=== PATIENT | female | born 1950 | race Caucasian/White ===

== ENCOUNTER → 2016-12-24 | Outpatient (CLI) | payer MEDICARE, OTHER ==
[2015-03-21 15:30] VITALS: BP 131/73
[~2016-12-24] MED LIST: ACCUPRIL10 M1 PO; ALLERGY RELIEF10 M1 PO; CALCIUM1 CAP PO; CO Q10 PO; CO-Q-10 100 MG-1 SGL PO; COLACE 100100 MG/CAP PO; COUMADIN2.5 MG PO; COUMADIN5 M1 PO; COUMADIN5 MG PO; FLONASE0.05 MG/AC IH; GLUCOSAMINE & C1 CA1 PO; HCTZ 25MG25 MG PO; KLOR-CON 1010 MEQ PO; LASIX40 MG PO; METOPROLOL PO; MULTIVITAMIN WI1 CAP PO; NORCO 325 MG-51 TAB PO; SUPER EPA1 SGL PO; TOPROL XL100 MG PO; VITAMIN C PURE500 M1 PO
== END ==
LOC: LAB 15:44
DX: Z51.81 Encounter for therapeutic drug level monitoring (principal); Z79.01 Long term (current) use of anticoagulants; Z86.718 Personal history of other venous thrombosis and embolism

== ENCOUNTER → 2017-01-21 | Outpatient (CLI) | payer MEDICARE, OTHER ==
[2015-03-21 15:30] VITALS: BP 131/73
== END ==
LOC: RAD 09:54
DX: M79.675 Pain in left toe(s) (principal); I48.0 Paroxysmal atrial fibrillation; M77.32 Calcaneal spur, left foot

== ENCOUNTER → 2017-07-16 | Outpatient (CLI) | payer MEDICARE, OTHER ==
[2015-03-21 15:30] VITALS: BP 131/73
== END ==
LOC: LAB 08:43
DX: Z00.00 Encounter for general adult medical examination without abnormal findings (principal); I10 Essential (primary) hypertension; E78.2 Mixed hyperlipidemia; I48.0 Paroxysmal atrial fibrillation; Z86.718 Personal history of other venous thrombosis and embolism

== ENCOUNTER → 2017-07-31 | Outpatient (CLI) | payer MEDICARE ==
[2015-03-21 15:30] VITALS: BP 131/73
== END ==
LOC: MAMMO 07-30 14:25
DX: Z12.31 Encounter for screening mammogram for malignant neoplasm of breast (principal)
CPT/HCPCS: G0202

== ENCOUNTER → 2018-05-27 | Outpatient (CLI) | payer MEDICARE ==
[2015-03-21 15:30] VITALS: BP 131/73
== END ==
LOC: LAB 14:36
DX: L02.416 Cutaneous abscess of left lower limb (principal); L03.116 Cellulitis of left lower limb

== ENCOUNTER → 2018-05-30 | Outpatient (CLI) | payer MEDICARE ==
[2015-03-21 15:30] VITALS: BP 131/73
== END ==
LOC: RAD 11:40
DX: L02.416 Cutaneous abscess of left lower limb (principal); L03.116 Cellulitis of left lower limb

== ENCOUNTER → 2019-01-19 | Outpatient (CLI) | payer MEDICARE ==
[2015-03-21 15:30] VITALS: BP 131/73
[2019-01-19 17:15] LABS: PROTHROMBIN TIME 18.3 SECONDS (9.0-12.0)
== END ==
LOC: LAB 15:31
PROVIDERS: Physician Assistant
DX: I48.91 Unspecified atrial fibrillation (principal)

== ENCOUNTER → 2019-01-27 | Outpatient (CLI) | payer MEDICARE ==
[2015-03-21 15:30] VITALS: BP 131/73
[2019-01-27 16:38] LABS: EOS # 0.1 (0.04-0.40); HEMATOCRIT 48.4 % (37.0-47.0); MEAN CELL VOLUME 87 fl (78-100); MEAN CORPUSCULAR HEMOGLOBIN 27 pg (27-31); MEAN CORPUSCULAR HGB CONC 31 g/dL (33-37); MEAN PLATELET VOLUME 10.4 fl (7.4-10.4); MONO # 0.8 (0.20-0.80); NEU # 5.1 (1.40-6.50); PLATELET COUNT 153 K/mm3 (130-400); RED BLOOD COUNT 5.54 M/mm3 (4.10-5.30); WHITE BLOOD COUNT 7.2 K/mm3 (4.8-10.8)
[2019-01-27 16:55] LABS: ALBUMIN 4.1 g/dL (3.5-5.0); CALCIUM 8.9 mg/dL (8.4-10.2); POTASSIUM 3.7 mmol/L (3.6-5.0); TOTAL BILIRUBIN 0.8 mg/dL (0.2-1.3); TOTAL PROTEIN 7.2 g/dL (6.3-8.2)
== END ==
LOC: LAB 16:12
PROVIDERS: Physician Assistant
DX: I50.9 Heart failure, unspecified (principal); I51.7 Cardiomegaly; M89.8X9 Other specified disorders of bone, unspecified site; R06.2 Wheezing

== ENCOUNTER → 2019-02-03 | Outpatient (CLI) | payer MEDICARE ==
[2015-03-21 15:30] VITALS: BP 131/73
[2019-02-03 14:36] LABS: PROTHROMBIN TIME 44.2 SECONDS (9.0-12.0)
== END ==
LOC: LAB 13:54
PROVIDERS: Physician Assistant
DX: I48.91 Unspecified atrial fibrillation (principal)

== ENCOUNTER → 2019-02-11 | Outpatient (CLI) | payer MEDICARE ==
[2015-03-21 15:30] VITALS: BP 131/73
== END ==
LOC: LAB 13:45
PROVIDERS: Physician Assistant
DX: I48.91 Unspecified atrial fibrillation (principal)

== ENCOUNTER → 2019-04-07 | Outpatient (CLI) | payer MEDICARE ==
[2015-03-21 15:30] VITALS: BP 131/73
[2019-04-07 17:07] LABS: PROTHROMBIN TIME 11.6 SECONDS (9.0-12.0)
== END ==
LOC: LAB 16:16
PROVIDERS: Physician Assistant
DX: I48.91 Unspecified atrial fibrillation (principal)

== ENCOUNTER → 2019-09-07 | Outpatient (CLI) | payer MEDICARE ==
[2015-03-21 15:30] VITALS: BP 131/73
[2019-09-07 13:12] LABS: PROTHROMBIN TIME 26.2 SECONDS (9.0-12.0)
== END ==
LOC: LAB 12:36
PROVIDERS: Physician Assistant
DX: I48.91 Unspecified atrial fibrillation (principal)

== ENCOUNTER → 2020-03-17 | Outpatient (CLI) | payer MEDICARE ==
[2015-03-21 15:30] VITALS: BP 131/73
[2020-03-17 10:34] LABS: PROTHROMBIN TIME 20.4 SECONDS (9.0-12.0)
== END ==
LOC: RAD 09:15
PROVIDERS: Nurse Practitioner
DX: M19.071 Primary osteoarthritis, right ankle and foot (principal); I63.9 Cerebral infarction, unspecified; L03.90 Cellulitis, unspecified; W19.XXXA Unspecified fall, initial encounter; Z79.01 Long term (current) use of anticoagulants

== ENCOUNTER → 2020-04-01 | Outpatient (CLI) | payer MEDICARE ==
[2015-03-21 15:30] VITALS: BP 131/73
[2020-04-01 14:09] LABS: EOS # 0.4 (0.04-0.40); EOS % 5.7 % (1.0-5.0); HEMATOCRIT 43.9 % (37.0-47.0); HEMOGLOBIN 13.6 g/dL (12.5-16.0); LYMPH# 1.2 (1.50-4.00); MEAN CELL VOLUME 89 fl (78-100); MEAN CORPUSCULAR HEMOGLOBIN 28 pg (27-31); MEAN CORPUSCULAR HGB CONC 31 g/dL (33-37); MONO # 0.8 (0.20-0.80); NEU # 4.7 (1.40-6.50); PLATELET COUNT 185 K/mm3 (130-400); RED BLOOD COUNT 4.94 M/mm3 (4.10-5.30); RED CELL DISTRIBUTION WIDTH 14.2 % (11.5-14.5); WHITE BLOOD COUNT 7.2 K/mm3 (4.8-10.8)
[2020-04-01 14:16] LABS: ALBUMIN 3.6 g/dL (3.4-4.8); POTASSIUM 4.1 mmol/L (3.5-5.1)
[2020-04-01 14:17] LABS: CALCIUM 8.6 mg/dL (8.3-10.5)
[2020-04-01 14:18] LABS: PROTHROMBIN TIME 30.7 SECONDS (9.0-12.0)
[2020-04-01 14:19] LABS: TOTAL PROTEIN 6.4 g/dL (6.2-8.1)
[2020-04-01 14:21] LABS: TOTAL BILIRUBIN 0.2 mg/dL (0.2-1.2)
== END ==
LOC: LAB 13:41
PROVIDERS: Physician Assistant
DX: Z12.31 Encounter for screening mammogram for malignant neoplasm of breast (principal); I10 Essential (primary) hypertension; E78.5 Hyperlipidemia, unspecified; M19.90 Unspecified osteoarthritis, unspecified site; I48.0 Paroxysmal atrial fibrillation; F32.9 Major depressive disorder, single episode, unspecified; L03.90 Cellulitis, unspecified; Z79.01 Long term (current) use of anticoagulants

== ENCOUNTER → 2020-04-19 | Outpatient (CLI) | payer MEDICARE ==
[2015-03-21 15:30] VITALS: BP 131/73
== END ==
LOC: RAD 10:12
DX: Z00.00 Encounter for general adult medical examination without abnormal findings (principal); Z12.31 Encounter for screening mammogram for malignant neoplasm of breast; M17.12 Unilateral primary osteoarthritis, left knee; R93.7 Abnormal findings on diagnostic imaging of other parts of musculoskeletal system

== ENCOUNTER → 2020-05-03 | Outpatient (CLI) | payer MEDICARE ==
[2015-03-21 15:30] VITALS: BP 131/73
== END ==
LOC: LAB 10:04 → RAD 10:04 → MAMMO 10:45
DX: Z00.00 Encounter for general adult medical examination without abnormal findings (principal); Z12.31 Encounter for screening mammogram for malignant neoplasm of breast; Z13.820 Encounter for screening for osteoporosis; M17.12 Unilateral primary osteoarthritis, left knee; M85.80 Other specified disorders of bone density and structure, unspecified site; R79.89 Other specified abnormal findings of blood chemistry; R93.7 Abnormal findings on diagnostic imaging of other parts of musculoskeletal system

== ENCOUNTER → 2020-05-03 | Outpatient (CLI) | payer MEDICARE ==
[2015-03-21 15:30] VITALS: BP 131/73
== END ==
LOC: MAMMO 10:00
DX: Z12.31 Encounter for screening mammogram for malignant neoplasm of breast (principal); M25.562 Pain in left knee; R93.7 Abnormal findings on diagnostic imaging of other parts of musculoskeletal system

== ENCOUNTER → 2020-07-20 | Outpatient (CLI) | payer MEDICARE ==
[2015-03-21 15:30] VITALS: BP 131/73
[2020-07-20 14:21] LABS: PROTHROMBIN TIME 20.7 SECONDS (9.0-12.0)
== END ==
LOC: LAB 13:31
PROVIDERS: Physician Assistant
DX: I63.9 Cerebral infarction, unspecified (principal); Z79.01 Long term (current) use of anticoagulants

== ENCOUNTER → 2020-10-18 | Outpatient (CLI) | payer MEDICARE ==
[2015-03-21 15:30] VITALS: BP 131/73
[2020-10-18 14:50] LABS: URINE WBC 0 /hpf (0-3)
[2020-10-18 14:59] LABS: EOS # 0.2 (0.04-0.40); EOS % 2.8 % (1.0-5.0); HEMATOCRIT 43.1 % (37.0-47.0); HEMOGLOBIN 13.5 g/dL (12.5-16.0); LYMPH# 1.5 (1.50-4.00); MEAN CELL VOLUME 89 fl (78-100); MEAN CORPUSCULAR HEMOGLOBIN 28 pg (27-31); MEAN CORPUSCULAR HGB CONC 31 g/dL (33-37); MEAN PLATELET VOLUME 10.5 fl (7.4-10.4); MONO # 0.8 (0.20-0.80); NEU # 4.3 (1.40-6.50); PLATELET COUNT 204 K/mm3 (130-400); RED BLOOD COUNT 4.84 M/mm3 (4.10-5.30); RED CELL DISTRIBUTION WIDTH 13.8 % (11.5-14.5); WHITE BLOOD COUNT 6.8 K/mm3 (4.8-10.8)
[2020-10-18 15:12] LABS: POTASSIUM 3.8 mmol/L (3.5-5.1)
[2020-10-18 15:13] LABS: CALCIUM 9.3 mg/dL (8.3-10.5); PROTHROMBIN TIME 18.8 SECONDS (9.0-12.0); URINE APPEARANCE CLEAR; URINE BILIRUBIN NEGATIVE (NEGATIVE); URINE BLOOD NEGATIVE (NEGATIVE); URINE COLOR YELLOW; URINE GLUCOSE NEGATIVE (NEGATIVE); URINE KETONE NEGATIVE (NEGATIVE); URINE LEUKOCYTE ESTERASE NEGATIVE (NEGATIVE); URINE NITRATE NEGATIVE (NEGATIVE); URINE PROTEIN(semi-quant) NEGATIVE (NEGATIVE); URINE UROBILINOGEN NORMAL (NORMAL)
[2020-10-18 15:14] LABS: TOTAL PROTEIN 6.8 g/dL (6.2-8.1)
[2020-10-18 15:16] LABS: TOTAL BILIRUBIN 0.4 mg/dL (0.2-1.2)
== END ==
LOC: RAD 14:33
PROVIDERS: Physician Assistant
DX: Z01.818 Encounter for other preprocedural examination (principal); Z13.29 Encounter for screening for other suspected endocrine disorder; I51.7 Cardiomegaly

== ENCOUNTER → 2020-10-27 | Outpatient (CLI) | payer MEDICARE ==
[2015-03-21 15:30] VITALS: BP 131/73
== END ==
LOC: PT 08:47 → EDSTATUS 14:00
DX: M17.12 Unilateral primary osteoarthritis, left knee (principal); Z96.652 Presence of left artificial knee joint

== ENCOUNTER → 2020-11-04 | Outpatient (CLI) | payer MEDICARE ==
[2015-03-21 15:30] VITALS: BP 131/73
[2020-11-04 14:55] LABS: PROTHROMBIN TIME 15.8 SECONDS (9.0-12.0)
== END ==
LOC: LAB 13:46
PROVIDERS: Physician Assistant
DX: Z01.818 Encounter for other preprocedural examination (principal); Z79.01 Long term (current) use of anticoagulants

== ENCOUNTER → 2020-11-07 | Outpatient (CLI) | payer MEDICARE ==
[2015-03-21 15:30] VITALS: BP 131/73
[2020-11-07 14:24] LABS: PROTHROMBIN TIME 23.6 SECONDS (9.0-12.0)
== END ==
LOC: LAB 13:49
PROVIDERS: Physician Assistant
DX: Z01.818 Encounter for other preprocedural examination (principal); Z79.01 Long term (current) use of anticoagulants

== ENCOUNTER → 2020-11-14 | Outpatient (CLI) | payer MEDICARE ==
[2015-03-21 15:30] VITALS: BP 131/73
[2020-11-14 14:59] LABS: PROTHROMBIN TIME 30.8 SECONDS (9.0-12.0)
== END ==
LOC: LAB 13:41
PROVIDERS: Physician Assistant
DX: Z79.01 Long term (current) use of anticoagulants (principal)

== ENCOUNTER → 2020-11-28 | Outpatient (CLI) | payer MEDICARE ==
[2015-03-21 15:30] VITALS: BP 131/73
[2020-11-28 13:34] LABS: EOS # 0.3 (0.04-0.40); EOS % 7.2 % (1.0-5.0); HEMATOCRIT 40.4 % (37.0-47.0); HEMOGLOBIN 12.1 g/dL (12.5-16.0); MEAN CELL VOLUME 91 fl (78-100); MEAN CORPUSCULAR HEMOGLOBIN 27 pg (27-31); MEAN CORPUSCULAR HGB CONC 30 g/dL (33-37); MEAN PLATELET VOLUME 10.2 fl (7.4-10.4); MONO # 0.4 (0.20-0.80); NEU # 2.7 (1.40-6.50); PLATELET COUNT 218 K/mm3 (130-400); RED BLOOD COUNT 4.42 M/mm3 (4.10-5.30); WHITE BLOOD COUNT 4.6 K/mm3 (4.8-10.8)
[2020-11-28 14:03] LABS: PROTHROMBIN TIME 43.6 SECONDS (9.0-12.0)
== END ==
LOC: LAB 13:11
PROVIDERS: Physician Assistant
DX: Z79.01 Long term (current) use of anticoagulants (principal); Z96.652 Presence of left artificial knee joint

== ENCOUNTER → 2020-12-15 | Outpatient (CLI) | payer MEDICARE ==
[2015-03-21 15:30] VITALS: BP 131/73
[2020-12-15 14:17] LABS: EOS # 0.1 (0.04-0.40); EOS % 2.4 % (1.0-5.0); HEMATOCRIT 40.4 % (37.0-47.0); HEMOGLOBIN 12.3 g/dL (12.5-16.0); LYMPH# 1.1 (1.50-4.00); MEAN CELL VOLUME 90 fl (78-100); MEAN CORPUSCULAR HEMOGLOBIN 27 pg (27-31); MEAN CORPUSCULAR HGB CONC 30 g/dL (33-37); MEAN PLATELET VOLUME 10.5 fl (7.4-10.4); MONO # 0.6 (0.20-0.80); PLATELET COUNT 235 K/mm3 (130-400); RED BLOOD COUNT 4.51 M/mm3 (4.10-5.30); WHITE BLOOD COUNT 5.8 K/mm3 (4.8-10.8)
[2020-12-15 14:24] LABS: PROTHROMBIN TIME 18.1 SECONDS (9.0-12.0)
== END ==
LOC: LAB 13:43
PROVIDERS: Physician Assistant
DX: Z96.652 Presence of left artificial knee joint (principal); Z79.01 Long term (current) use of anticoagulants

== ENCOUNTER → 2021-01-02 | Outpatient (CLI) | payer MEDICARE ==
[2015-03-21 15:30] VITALS: BP 131/73
[2021-01-02 14:16] LABS: PROTHROMBIN TIME 29.4 SECONDS (9.0-12.0)
== END ==
LOC: LAB 13:36
PROVIDERS: Physician Assistant
DX: Z79.01 Long term (current) use of anticoagulants (principal)

== ENCOUNTER 2021-01-23 14:30 | Outpatient (RCR) | payer MEDICARE ==
[2015-03-21 15:30] VITALS: BP 131/73
== END 2021-01-23 16:30 | disposition home or self-care (01) ==
LOC: PT
DX: Z96.652 Presence of left artificial knee joint (principal)

== ENCOUNTER → 2021-07-12 | Outpatient (CLI) | payer MEDICARE ==
[2021-07-12 15:05] LABS: PROTHROMBIN TIME 23.2 SECONDS (9.0-12.0)
== END ==
LOC: LAB 14:30
PROVIDERS: Physician Assistant
DX: Z79.01 Long term (current) use of anticoagulants (principal)

== ENCOUNTER → 2021-07-24 | Outpatient (CLI) | payer MEDICARE ==
[2021-07-24 10:51] LABS: BASO # 0.04 K/mm3 (0.02-0.10); EOS # 0.26 K/mm3 (0.04-0.40); EOS % 4.4 % (1.0-5.0); HEMATOCRIT 41.1 % (37.0-47.0); HEMOGLOBIN 12.8 g/dL (12.5-16.0); LYMPH# 0.96 K/mm3 (1.50-4.00); MEAN CELL VOLUME 89 fl (78-100); MEAN CORPUSCULAR HEMOGLOBIN 28 pg (27-31); MEAN CORPUSCULAR HGB CONC 31 g/dL (33-37); MEAN PLATELET VOLUME 10.3 fl (7.4-10.4); PLATELET COUNT 181 K/mm3 (130-400); RED CELL DISTRIBUTION WIDTH 13.3 % (11.5-14.5); WHITE BLOOD COUNT 5.9 K/mm3 (4.8-10.8)
[2021-07-24 11:13] LABS: PROTHROMBIN TIME 27.5 SECONDS (9.0-12.0)
[2021-07-24 11:34] LABS: POTASSIUM 4.1 mmol/L (3.5-5.1)
[2021-07-24 11:35] LABS: ALBUMIN 3.6 g/dL (3.4-4.8)
[2021-07-24 11:36] LABS: CALCIUM 9.5 mg/dL (8.3-10.5)
[2021-07-24 11:37] LABS: TOTAL PROTEIN 6.6 g/dL (6.2-8.1)
[2021-07-24 11:39] LABS: TOTAL BILIRUBIN 0.7 mg/dL (0.2-1.2)
== END ==
LOC: LAB 10:18
PROVIDERS: Physician Assistant
DX: Z13.29 Encounter for screening for other suspected endocrine disorder (principal); Z13.1 Encounter for screening for diabetes mellitus; I10 Essential (primary) hypertension; E78.5 Hyperlipidemia, unspecified; K90.9 Intestinal malabsorption, unspecified; Z79.01 Long term (current) use of anticoagulants

== ENCOUNTER → 2021-10-27 | Outpatient (CLI) | payer MEDICARE ==
[2021-10-27 15:23] LABS: PROTHROMBIN TIME 22.9 SECONDS (9.0-12.0)
== END ==
LOC: LAB 14:36
PROVIDERS: Physician Assistant
DX: E11.9 Type 2 diabetes mellitus without complications (principal); Z79.01 Long term (current) use of anticoagulants

== ENCOUNTER → 2021-10-31 | Outpatient (CLI) | payer MEDICARE | LOC: LAB 09:44 | DX: E11.9 Type 2 diabetes mellitus without complications (principal) ==

== ENCOUNTER → 2021-11-14 | Outpatient (CLI) | payer MEDICARE | LOC: MAMMO 14:30 | DX: Z12.31 Encounter for screening mammogram for malignant neoplasm of breast (principal) ==

== ENCOUNTER → 2022-04-24 | Outpatient (CLI) | payer MEDICARE | LOC: LAB 14:50 | PROVIDERS: Physician Assistant | DX: E11.9 Type 2 diabetes mellitus without complications (principal); Z79.01 Long term (current) use of anticoagulants ==

== ENCOUNTER → 2022-06-13 | Outpatient (CLI) | payer MEDICARE | LOC: RAD 11:02 | DX: M24.142 Other articular cartilage disorders, left hand (principal); M16.10 Unilateral primary osteoarthritis, unspecified hip; M54.50 Low back pain, unspecified ==

== ENCOUNTER → 2022-08-17 | Outpatient (CLI) | payer MEDICARE ==
[2022-08-17 17:05] LABS: BASO # 0.03 K/mm3 (0.02-0.10); EOS # 0.18 K/mm3 (0.04-0.40); EOS % 2.3 % (1.0-5.0); HEMATOCRIT 44.4 % (37.0-47.0); HEMOGLOBIN 14.5 g/dL (12.5-16.0); LYMPH# 1.27 K/mm3 (1.50-4.00); MEAN CELL VOLUME 90 fl (78-100); MEAN CORPUSCULAR HEMOGLOBIN 29 pg (27-31); MEAN CORPUSCULAR HGB CONC 33 g/dL (33-37); MEAN PLATELET VOLUME 10.7 fl (7.4-10.4); MONO # 0.55 K/mm3 (0.20-0.80); NEU # 5.66 K/mm3 (1.40-6.50); PLATELET COUNT 209 K/mm3 (130-400); RED BLOOD COUNT 4.96 M/mm3 (4.10-5.30); RED CELL DISTRIBUTION WIDTH 13.6 % (11.5-14.5); WHITE BLOOD COUNT 7.7 K/mm3 (4.8-10.8)
[2022-08-17 17:31] LABS: PROTHROMBIN TIME 31.3 SECONDS (9.0-12.0)
[2022-08-17 17:33] LABS: ALBUMIN 4.4 g/dL (3.4-4.8)
[2022-08-17 17:34] LABS: CALCIUM 9.9 mg/dL (8.3-10.5)
[2022-08-17 17:36] LABS: TOTAL PROTEIN 7.4 g/dL (6.2-8.1)
[2022-08-17 17:38] LABS: TOTAL BILIRUBIN 0.5 mg/dL (0.2-1.2)
== END ==
LOC: LAB 15:49
PROVIDERS: Physician Assistant
DX: Z00.00 Encounter for general adult medical examination without abnormal findings (principal); I10 Essential (primary) hypertension; I63.50 Cerebral infarction due to unspecified occlusion or stenosis of unspecified cerebral artery; E78.5 Hyperlipidemia, unspecified; Z79.01 Long term (current) use of anticoagulants; M19.90 Unspecified osteoarthritis, unspecified site; I48.0 Paroxysmal atrial fibrillation; E11.9 Type 2 diabetes mellitus without complications; E55.9 Vitamin D deficiency, unspecified; K90.9 Intestinal malabsorption, unspecified; Z13.29 Encounter for screening for other suspected endocrine disorder

== ENCOUNTER 2022-11-02 13:23 | Outpatient (RCR) | payer MEDICARE | END 2022-11-06 | disposition home or self-care (01) | LOC: PT | DX: Z96.642 Presence of left artificial hip joint (principal) ==

== ENCOUNTER → 2022-11-02 | Outpatient (CLI) | payer MEDICARE ==
[2022-11-02 15:39] LABS: PROTHROMBIN TIME 10.9 SECONDS (9.0-12.0)
== END ==
LOC: LAB 14:45
PROVIDERS: Physician Assistant
DX: Z79.01 Long term (current) use of anticoagulants (principal)

== ENCOUNTER 2022-12-05 10:46 | Outpatient (RCR) | payer MEDICARE | END 2023-01-04 | disposition home or self-care (01) | LOC: PT | DX: Z96.642 Presence of left artificial hip joint (principal) ==

== ENCOUNTER → 2023-12-31 | Outpatient (CLI) | payer MEDICARE ==
[2023-12-31 09:51] LABS: BASO # 0.02 K/mm3 (0.02-0.10); EOS # 0.24 K/mm3 (0.04-0.40); LYMPH# 1.12 K/mm3 (1.50-4.00); MEAN CELL VOLUME 87 fl (78-100); MEAN CORPUSCULAR HEMOGLOBIN 28 pg (27-31); MEAN CORPUSCULAR HGB CONC 32 g/dL (33-37); MEAN PLATELET VOLUME 10.1 fl (7.4-10.4); MONO # 0.47 K/mm3 (0.20-0.80); NEU # 4.11 K/mm3 (1.40-6.50); PLATELET COUNT 191 K/mm3 (130-400); RED BLOOD COUNT 5.05 M/mm3 (4.10-5.30); RED CELL DISTRIBUTION WIDTH 13.1 % (11.5-14.5)
[2023-12-31 09:56] LABS: ALBUMIN 4.1 g/dL (3.4-4.8)
[2023-12-31 09:59] LABS: TOTAL PROTEIN 7.2 g/dL (6.2-8.1)
[2023-12-31 10:01] LABS: TOTAL BILIRUBIN 0.6 mg/dL (0.2-1.2)
== END ==
LOC: LAB 09:34
PROVIDERS: Physician Assistant
DX: Z13.29 Encounter for screening for other suspected endocrine disorder (principal); I10 Essential (primary) hypertension; E78.2 Mixed hyperlipidemia; E11.9 Type 2 diabetes mellitus without complications; K90.9 Intestinal malabsorption, unspecified

== ENCOUNTER → 2024-04-22 | Outpatient (CLI) | payer MEDICARE | LOC: MAMMO 08:23 | DX: Z13.820 Encounter for screening for osteoporosis (principal); Z12.31 Encounter for screening mammogram for malignant neoplasm of breast ==

== ENCOUNTER → 2024-04-22 | Outpatient (CLI) | payer MEDICARE | LOC: MAMMO 08:15 | DX: Z12.31 Encounter for screening mammogram for malignant neoplasm of breast (principal); Z13.820 Encounter for screening for osteoporosis ==